=== PATIENT | male | born 1975 | race Caucasian/White ===

== ENCOUNTER 2022-01-22 14:13 | Inpatient (IN) ==
[2022-01-22] MEDS ORDERED: SODIUM CHLORIDE 0.9% 1,000 ML IV STA (15:55)
[2022-01-22 16:47] LABS: Arterial Base Excess iSTAT -1 MMOL/L (-2.5-2.5); Arterial Bicarbonate iSTAT 25.6 MMOL/L (20-26); Arterial O2 Saturation iSTAT 88 % (95-100); Arterial PCO2 iSTAT 49 MM HG (35-48); Arterial PO2 iSTAT 60 MM HG (80-95); Arterial Total CO2 iSTAT 27 MMO/L (23-27); Arterial pH iSTAT 7.324 (7.35-7.45); Bacteria,Urine Occasional /HPF (Few); RBC,Urine 5 /HPF (0-4)
[2022-01-22 16:47] LABS: Basophils # 0.1 10*3/uL (0.0-0.2); Basophils % 0.8 % (0.0-0.8); Eosinophils # 0.3 10*3/uL (0.0-0.87); Eosinophils % 3.2 % (0.00-10.9); Hematocrit 36.1 VOL% (42.0-52.0); Hemoglobin 11.6 GM/DL (14.0-18.0); Immature Granulocytes % 0.3 %; Immature Granulocytes Absolute 0.03 #; Lymphocytes # 1.8 10*3/uL (1.4-4.0); Lymphocytes % 20.5 % (21.2-54.2); Mean Corpuscular HGB Conc 32.1 GM/DL (32-36); Mean Corpuscular Volume 100.8 FL (87-102); Mean Platelet Volume 9.5 FL (9.6-12.0); Monocytes # 0.5 10*3/uL (0.11-0.8); Monocytes % 5.8 % (1.7-12.7); Neutrophils % 69.4 % (38.7-73.9); Platelet Count 196 T/CUMM (130-400); Red Blood Count 3.58 MC/CUMM (3.8-5.5); Red Cell Distribution Width 14.1 % (9.3-17.3); White Blood Count 8.8 T/CUMM (4-12)
[2022-01-22 16:48] LABS: Bilirubin,Urine Negative (Negative); Blood, Urine Small mg/dL (Negative); Glucose,Urine (UA) Negative (Negative); Ketones,Urine Negative (Negative); Nitrite,Urine Negative (Negative); Protein,Urine >=300 mg/dL (Negative); Urine Appearance Clear (Clear); Urine Color Yellow (Yellow); Urine Urobilinogen 0.2 eU/dL (<2.0); Urine pH 6.5 (4.5-8.0)
[2022-01-22 16:56] LABS: Barbiturates Screen,Urine Negative (Negative); Benzodiazepines Screen,Urine Negative (Negative); Cannabinoid Screen,Urine Negative (Negative); Opiate Screen,Urine Negative (Negative); Phencyclidine Screen,Urine Negative (Negative)
[2022-01-22 17:08] LABS: Alanine Aminotransferase 13 U/L (16-61); Albumin 3.4 G/DL (3.4-5.0); Alkaline Phosphatase 333 U/L (45-117); Aspartate Amino Transferase 11 U/L (0-37); Blood Urea Nitrogen 105 MG/DL (7-18); Calcium 8.9 MG/DL (8.5-10.1); Carbon Dioxide 24 MMOL/L (21-32); Chloride 99 MMOL/L (98-107); Glucose 62 MG/DL (74-106); Osmolality,Calculated 300.1 MOS/KG (273-304); Potassium 4.9 MMOL/L (3.5-5.1); Sodium 135 MMOL/L (136-145); Total Protein 7.2 G/DL (6.4-8.2)
[2022-01-22] MEDS ORDERED: ONDANSETRON 4 MG/2 ML VIAL IV PRN (17:59)
[2022-01-22] MEDS ORDERED: ACETAMINOPHEN 325 MG TABLET PO PRN (17:59)
[2022-01-22] MEDS ORDERED: ALBUTEROL 2.5 MG/3 ML NEB RESP TX PRN (17:59)
[2022-01-22] MEDS ORDERED: LACTULOSE 20 GM/30 ML UDCUP PO PRN (17:59)
[2022-01-22] MEDS ORDERED: ALUMINUM/MAGNES/SIMETH MAX STR 30 ML UDCUP PO PRN (17:59)
[2022-01-22] MEDS ORDERED: DOCUSATE SODIUM 100 MG CAPSULE PO PRN (17:59)
[2022-01-22] MEDS ORDERED: hydrALAZINE 20 MG/1 ML VIAL IV PRN (17:59)
[2022-01-22] MEDS ORDERED: GLUCAGON 1 MG VIAL IM PRN (17:59)
[2022-01-22] MEDS ORDERED: DEXTROSE 10% 250 ML BAG IV PRN (18:12)
[2022-01-22] MEDS: ENOXAPARIN 30 MG/0.3 ML SYRINGE SUBCUT SCH (18:58)
[2022-01-22] MEDS: LACTULOSE 20 GM/30 ML UDCUP PO SCH (20:44)
[2022-01-22] MEDS: metOLazone 5 MG TABLET PO SCH (20:44)
[2022-01-22] MEDS: INSULIN REGULAR 100 UNIT/ML SUBCUT SCH (20:53)
[2022-01-22] MEDS: traMADol 50 MG TABLET PO PRN (22:09)
[2022-01-23 05:02] LABS: ABG Base Excess -2.4 MMOL/L (-2.5-2.5); ABG HCO3 22.4 MMOL/L (20-26); ABG Oxygen Saturation 98.4 % (95-100); ABG PH 7.245 (7.35-7.45); ABG TCO2 23.9 MMOL/L (23-27)
[2022-01-23 06:23] LABS: Basophils % 0.6 % (0.0-0.8); Eosinophils # 0.2 10*3/uL (0.0-0.87); Eosinophils % 3.6 % (0.00-10.9); Hematocrit 35.8 VOL% (42.0-52.0); Immature Granulocytes % 0.5 %; Immature Granulocytes Absolute 0.03 #; Lymphocytes # 2.1 10*3/uL (1.4-4.0); Lymphocytes % 32.4 % (21.2-54.2); Mean Corpuscular HGB Conc 30.7 GM/DL (32-36); Mean Corpuscular Volume 104.7 FL (87-102); Mean Platelet Volume 9.7 FL (9.6-12.0); Monocytes # 0.5 10*3/uL (0.11-0.8); Neutrophils % 55.9 % (38.7-73.9); Platelet Count 198 T/CUMM (130-400); Red Blood Count 3.42 MC/CUMM (3.8-5.5); Red Cell Distribution Width 14.2 % (9.3-17.3); White Blood Count 6.4 T/CUMM (4-12)
[2022-01-23 06:38] LABS: Calcium 9.1 MG/DL (8.5-10.1); Osmolality,Calculated 305.7 MOS/KG (273-304); Potassium 4.7 MMOL/L (3.5-5.1)
[2022-01-23 06:41] LABS: Alanine Aminotransferase 14 U/L (16-61); Albumin 3.2 G/DL (3.4-5.0); Alkaline Phosphatase 323 U/L (45-117); Aspartate Amino Transferase 10 U/L (0-37); Bilirubin,Direct < 0.100 MG/DL (0.0-0.20); Bilirubin,Indirect 0.3 MG/DL (0.0-1.0); Bilirubin,Total < 0.39 MG/DL (0.20-1.00); Total Protein 6.8 G/DL (6.4-8.2)
[2022-01-23 06:51] LABS: Risk Ratio 2.63; VLDL Cholesterol 23.2 MG/DL
[2022-01-23] MEDS: INSULIN REGULAR 100 UNIT/ML SUBCUT SCH ×4 (07:36→20:52)
[2022-01-23] MEDS: metOLazone 5 MG TABLET PO SCH ×2 (08:11→20:55)
[2022-01-23] MEDS: FUROSEMIDE 40 MG TABLET PO SCH ×2 (08:11→16:38)
[2022-01-23] MEDS: LACTULOSE 20 GM/30 ML UDCUP PO SCH ×2 (08:11→20:52)
[2022-01-23] MEDS: ESCITALOPRAM 10 MG TABLET PO SCH (08:11)
[2022-01-23] MEDS: PANTOPRAZOLE 40 MG TABLET PO SCH (08:11)
[2022-01-23] MEDS: NICOTINE 21 MG/24 HR PATCH TRANSDERM SCH (08:12)
[2022-01-23] MEDS: NON-FORMULARY MEDICATION (Ferric Citrate [Auryxia] 210 mg iron Tablet) PO SCH ×3 (09:06→16:29)
[2022-01-23] MEDS: lisinopriL 20 MG TABLET PO SCH ×2 (09:06→16:38)
[2022-01-23 09:23] LABS: Free T4 (Free Thyroxine) 0.73 NG/DL (0.76-1.46)
[2022-01-23 12:41] LABS: Hepatitis B Core IgM Quant < 0.05 Index; Hepatitis B Surface Ag Quant < 0.10 Index; Hepatitis B Surface Ag Result Non-Reactive (NonReactive); Hepatitis C Virus Ab Quant 0.02 Index; Hepatitis C Virus Ab Result Non-Reactive (NonReactive)
[2022-01-23 13:07] LABS: Arterial Base Excess iSTAT -3 MMOL/L (-2.5-2.5); Arterial Bicarbonate iSTAT 23.8 MMOL/L (20-26); Arterial O2 Saturation iSTAT 91 % (95-100); Arterial PCO2 iSTAT 47 MM HG (35-48); Arterial PO2 iSTAT 68 MM HG (80-95); Arterial Total CO2 iSTAT 25 MMO/L (23-27); Arterial pH iSTAT 7.311 (7.35-7.45)
[2022-01-23] MEDS: ENOXAPARIN 30 MG/0.3 ML SYRINGE SUBCUT SCH (17:18)
[2022-01-23] MEDS: traMADol 50 MG TABLET PO PRN (18:24)
[2022-01-24 05:09] LABS: Basophils # 0.1 10*3/uL (0.0-0.2); Basophils % 0.6 % (0.0-0.8); Eosinophils # 0.3 10*3/uL (0.0-0.87); Eosinophils % 3.6 % (0.00-10.9); Hematocrit 34.3 VOL% (42.0-52.0); Hemoglobin 10.9 GM/DL (14.0-18.0); Immature Granulocytes % 0.5 %; Immature Granulocytes Absolute 0.04 #; Lymphocytes % 25.4 % (21.2-54.2); Mean Corpuscular HGB Conc 31.8 GM/DL (32-36); Mean Corpuscular Volume 102.7 FL (87-102); Mean Platelet Volume 10.2 FL (9.6-12.0); Monocytes # 0.6 10*3/uL (0.11-0.8); Monocytes % 7.3 % (1.7-12.7); Neutrophils % 62.6 % (38.7-73.9); Platelet Count 180 T/CUMM (130-400); Red Blood Count 3.34 MC/CUMM (3.8-5.5); Red Cell Distribution Width 14.3 % (9.3-17.3); White Blood Count 7.8 T/CUMM (4-12)
[2022-01-24 05:26] LABS: Calcium 9.5 MG/DL (8.5-10.1); Osmolality,Calculated 298.4 MOS/KG (273-304); Potassium 5.6 MMOL/L (3.5-5.1)
[2022-01-24] MEDS: INSULIN REGULAR 100 UNIT/ML SUBCUT SCH ×3 (09:24→16:42)
[2022-01-24] MEDS: NON-FORMULARY MEDICATION (Ferric Citrate [Auryxia] 210 mg iron Tablet) PO SCH ×2 (11:53→12:12)
[2022-01-24] MEDS: FUROSEMIDE 40 MG TABLET PO SCH ×2 (12:10→16:42)
[2022-01-24] MEDS: metOLazone 5 MG TABLET PO SCH (12:11)
[2022-01-24] MEDS: NICOTINE 21 MG/24 HR PATCH TRANSDERM SCH (12:11)
[2022-01-24] MEDS: LACTULOSE 20 GM/30 ML UDCUP PO SCH (12:11)
[2022-01-24] MEDS: lisinopriL 20 MG TABLET PO SCH (12:11)
[2022-01-24] MEDS: PANTOPRAZOLE 40 MG TABLET PO SCH (12:11)
[2022-01-24] MEDS: ESCITALOPRAM 10 MG TABLET PO SCH (12:11)
[2022-01-24] MEDS ORDERED: GABAPENTIN 300 MG CAPSULE PO SCH (15:00)
[2022-01-24 15:44] VITALS: BP 155/64
[2022-01-25] MEDS ORDERED: NEBIVOLOL 10 MG TABLET PO SCH (09:00)
== END 2022-01-24 16:38 | disposition home or self-care (01) | DRG 189 ==
LOC: N.ED 14:13 → N.EDINP 17:59 → N.5E 19:19
PROVIDERS: ADMIT Internal Medicine; ATTEND Internal Medicine

== ENCOUNTER 2022-02-12 11:25 | Observation (INO) ==
[2022-02-12] MEDS ORDERED: MORPHINE 2 MG/1 ML SYRINGE ONE (11:49)
[2022-02-12] MEDS ORDERED: NITROGLYCERIN 2% OINT 1 INCH/GM PACK TOP STA (11:49)
[2022-02-12] MEDS ORDERED: ASPIRIN 325 MG TABLET PO STA (11:49)
[2022-02-12] MEDS ORDERED: NITROGLYCERIN 2% OINT 1 INCH/GM PACK TOP ONE (11:50)
[2022-02-12] MEDS ORDERED: ASPIRIN 325 MG TABLET ONE (11:50)
[2022-02-12] MEDS ORDERED: ONDANSETRON 4 MG/2 ML VIAL ONE (11:50)
[2022-02-12] MEDS ORDERED: MORPHINE 2 MG/1 ML SYRINGE IV STA ×2 (11:52→12:25)
[2022-02-12 11:58] LABS: Basophils # 0.1 10*3/uL (0.0-0.2); Basophils % 0.6 % (0.0-0.8); Eosinophils # 0.4 10*3/uL (0.0-0.87); Eosinophils % 4.5 % (0.00-10.9); Hematocrit 37.3 VOL% (42.0-52.0); Immature Granulocytes % 0.6 %; Immature Granulocytes Absolute 0.05 #; Lymphocytes # 1.5 10*3/uL (1.4-4.0); Mean Corpuscular HGB Conc 32.2 GM/DL (32-36); Mean Corpuscular Volume 101.1 FL (87-102); Mean Platelet Volume 9.9 FL (9.6-12.0); Monocytes # 0.5 10*3/uL (0.11-0.8); Monocytes % 6.7 % (1.7-12.7); Neutrophils % 69.6 % (38.7-73.9); Platelet Count 142 T/CUMM (130-400); Red Blood Count 3.69 MC/CUMM (3.8-5.5); Red Cell Distribution Width 14.2 % (9.3-17.3); White Blood Count 8.1 T/CUMM (4-12)
[2022-02-12 12:16] LABS: Albumin 3.3 G/DL (3.4-5.0); Bilirubin,Total 0.4 MG/DL (0.20-1.00); Calcium 9.8 MG/DL (8.5-10.1); Osmolality,Calculated 289.1 MOS/KG (273-304); Potassium 4.1 MMOL/L (3.5-5.1); Total Protein 8.1 G/DL (6.4-8.2)
[2022-02-12] MEDS ORDERED: ONDANSETRON 4 MG/2 ML VIAL IV STA (12:19)
[2022-02-12] MEDS ORDERED: ONDANSETRON 4 MG/2 ML VIAL IV PRN (12:35)
[2022-02-12] MEDS ORDERED: DOCUSATE SODIUM 100 MG CAPSULE PO PRN (12:35)
[2022-02-12] MEDS ORDERED: SIMETHICONE CHEW 125 MG TABLET PO PRN (12:35)
[2022-02-12] MEDS ORDERED: GLUCAGON 1 MG VIAL IM PRN (12:35)
[2022-02-12] MEDS ORDERED: MORPHINE 2 MG/1 ML SYRINGE IV PRN (12:35)
[2022-02-12] MEDS ORDERED: ALBUTEROL 2.5 MG/3 ML NEB RESP TX PRN (12:35)
[2022-02-12] MEDS ORDERED: hydrALAZINE 20 MG/1 ML VIAL IV PRN (12:35)
[2022-02-12] MEDS ORDERED: ALUM/MAG/SIMETH/LIDO VISC 1:1 30 ML BOTTLE PO ONE (12:50)
[2022-02-12] MEDS ORDERED: ALUM/MAG/SIMETH/LIDO VISC 1:1 30 ML BOTTLE PO STA (13:07)
[2022-02-12] MEDS ORDERED: DEXTROSE 10% 250 ML BAG IV PRN ×2 (13:18→14:48)
[2022-02-12] MEDS: GABAPENTIN 300 MG CAPSULE PO SCH ×2 (15:49→22:08)
[2022-02-12] MEDS: INSULIN LISPRO 100 UNIT/ML SUBCUT SCH ×2 (16:55→22:23)
[2022-02-12] MEDS: HEPARIN 5,000 UNIT/1 ML VIAL SUBCUT SCH (22:07)
[2022-02-12] MEDS: metOLazone 5 MG TABLET PO SCH (22:08)
[2022-02-12] MEDS: FUROSEMIDE 40 MG TABLET PO SCH (22:08)
[2022-02-13 05:33] LABS: Basophils # 0.1 10*3/uL (0.0-0.2); Basophils % 0.6 % (0.0-0.8); Eosinophils # 0.3 10*3/uL (0.0-0.87); Eosinophils % 3.1 % (0.00-10.9); Hematocrit 34.8 VOL% (42.0-52.0); Hemoglobin 10.8 GM/DL (14.0-18.0); Immature Granulocytes % 0.7 %; Immature Granulocytes Absolute 0.07 #; Lymphocytes # 1.5 10*3/uL (1.4-4.0); Lymphocytes % 14.8 % (21.2-54.2); Mean Corpuscular Volume 103.9 FL (87-102); Mean Platelet Volume 10.3 FL (9.6-12.0); Monocytes # 0.8 10*3/uL (0.11-0.8); Monocytes % 8.2 % (1.7-12.7); Neutrophils % 72.6 % (38.7-73.9); Platelet Count 131 T/CUMM (130-400); Red Blood Count 3.35 MC/CUMM (3.8-5.5); Red Cell Distribution Width 14.4 % (9.3-17.3); White Blood Count 10.1 T/CUMM (4-12)
[2022-02-13 06:20] LABS: Albumin 3.2 G/DL (3.4-5.0); Bilirubin,Total 0.4 MG/DL (0.20-1.00); Calcium 9.7 MG/DL (8.5-10.1); Osmolality,Calculated 286.7 MOS/KG (273-304); Potassium 5.4 MMOL/L (3.5-5.1); Risk Ratio 2.22; Thyroid Stimulating Hormone 0.591 uIU/ml (0.358-3.74); Total Protein 7.6 G/DL (6.4-8.2)
[2022-02-13] MEDS ORDERED: SODIUM POLYSTYRENE SULFATE 15 GM/60 ML BOTTLE PO ONE (07:10)
[2022-02-13] MEDS ORDERED: ALUM/MAG/SIMETH/LIDO VISC 1:1 30 ML BOTTLE PO ONE (08:12)
[2022-02-13] MEDS ORDERED: NEBIVOLOL 10 MG TABLET PO SCH (09:00)
[2022-02-13] MEDS ORDERED: PANTOPRAZOLE 40 MG TABLET PO SCH (09:00)
[2022-02-13] MEDS ORDERED: lisinopriL 20 MG TABLET PO SCH (09:00)
[2022-02-13] MEDS ORDERED: tiZANidine 4 MG TABLET PO ONE (09:00)
[2022-02-13] MEDS: INSULIN LISPRO 100 UNIT/ML SUBCUT SCH ×2 (09:53→11:28)
[2022-02-13] MEDS: FUROSEMIDE 40 MG TABLET PO SCH (10:19)
[2022-02-13] MEDS: metOLazone 5 MG TABLET PO SCH (10:20)
[2022-02-13] MEDS: GABAPENTIN 300 MG CAPSULE PO SCH ×2 (10:20→14:58)
[2022-02-13] MEDS: HEPARIN 5,000 UNIT/1 ML VIAL SUBCUT SCH (10:21)
[2022-02-13 12:20] VITALS: BP 144/76
== END 2022-02-13 15:38 | disposition home or self-care (01) ==
LOC: EDBD → EDUNIT# → N.EDINP 11:25 → N.ED 11:25 → N.EDINP 14:59 → N.TELEN 15:14
PROVIDERS: ADMIT Internal Medicine; ATTEND Internal Medicine

== ENCOUNTER 2022-03-15 14:48 | Observation (INO) ==
[2022-03-15 16:39] LABS: Arterial Base Excess iSTAT -5 MMOL/L (-2.5-2.5); Arterial Bicarbonate iSTAT 21.7 MMOL/L (20-26); Arterial O2 Saturation iSTAT 94 % (95-100); Arterial PCO2 iSTAT 46 MM HG (35-48); Arterial PO2 iSTAT 80 MM HG (80-95); Arterial Total CO2 iSTAT 23 MMO/L (23-27); Arterial pH iSTAT 7.278 (7.35-7.45)
[2022-03-15 17:23] LABS: Basophils # 0.1 10*3/uL (0.0-0.2); Basophils % 0.6 % (0.0-0.8); Eosinophils # 0.1 10*3/uL (0.0-0.87); Hematocrit 37.7 VOL% (42.0-52.0); Hemoglobin 11.4 GM/DL (14.0-18.0); Immature Granulocytes % 0.3 %; Immature Granulocytes Absolute 0.03 #; Lymphocytes # 1.4 10*3/uL (1.4-4.0); Lymphocytes % 16.2 % (21.2-54.2); Mean Corpuscular HGB Conc 30.2 GM/DL (32-36); Mean Corpuscular Volume 107.7 FL (87-102); Mean Platelet Volume 11.4 FL (9.6-12.0); Monocytes # 0.6 10*3/uL (0.11-0.8); Monocytes % 7.3 % (1.7-12.7); Neutrophils % 74.6 % (38.7-73.9); Platelet Count 159 T/CUMM (130-400); Red Cell Distribution Width 18.6 % (9.3-17.3); White Blood Count 8.6 T/CUMM (4-12)
[2022-03-15] MEDS ORDERED: VANCOMYCIN INJ 1,500 MG in SODIUM CHLORIDE 0.9% 500 ML IV STA (17:27)
[2022-03-15 17:46] LABS: Albumin 2.9 G/DL (3.4-5.0); Bilirubin,Total 0.4 MG/DL (0.20-1.00); Calcium 8.5 MG/DL (8.5-10.1); Osmolality,Calculated 294.1 MOS/KG (273-304); Total Protein 7.1 G/DL (6.4-8.2)
[2022-03-15] MEDS ORDERED: LACTULOSE 20 GM/30 ML UDCUP PO STA (19:01)
[2022-03-15] MEDS ORDERED: MORPHINE 2 MG/1 ML SYRINGE IV PRN (19:23)
[2022-03-15] MEDS ORDERED: NICOTINE 21 MG/24 HR PATCH TRANSDERM PRN (19:23)
[2022-03-15] MEDS ORDERED: GLUCAGON 1 MG VIAL IM PRN (19:23)
[2022-03-15] MEDS ORDERED: ONDANSETRON 4 MG/2 ML VIAL IV PRN (19:23)
[2022-03-15] MEDS ORDERED: hydrALAZINE 20 MG/1 ML VIAL IV PRN (19:32)
[2022-03-15 20:26] LABS: Barbiturates Screen,Urine Negative (Negative); Benzodiazepines Screen,Urine Negative (Negative); Cannabinoid Screen,Urine Negative (Negative); Opiate Screen,Urine Positive (Negative); Phencyclidine Screen,Urine Negative (Negative)
[2022-03-15] MEDS ORDERED: VANCOMYCIN INJ 1,000 MG in SODIUM CHLORIDE 0.9% 250 ML IV PRN (21:00)
[2022-03-15] MEDS ORDERED: DEXTROSE 10% 250 ML BAG IV PRN (21:12)
[2022-03-15] MEDS ORDERED: VANCOMYCIN INJ 1,000 MG in SODIUM CHLORIDE 0.9% 250 ML IV ONE (21:30)
[2022-03-15 21:57] LABS: Thyroid Stimulating Hormone 1.41 uIU/ml (0.358-3.74)
[2022-03-15] MEDS: HEPARIN 5,000 UNIT/1 ML VIAL SUBCUT SCH (23:10)
[2022-03-15] MEDS: LACTULOSE 20 GM/30 ML UDCUP PO SCH (23:10)
[2022-03-15] MEDS: INSULIN REGULAR 100 UNIT/ML SUBCUT SCH (23:15)
[2022-03-16 02:53] LABS: Basophils # 0.1 10*3/uL (0.0-0.2); Basophils % 0.8 % (0.0-0.8); Eosinophils # 0.2 10*3/uL (0.0-0.87); Eosinophils % 1.9 % (0.00-10.9); Hemoglobin 12.3 GM/DL (14.0-18.0); Immature Granulocytes % 0.4 %; Immature Granulocytes Absolute 0.03 #; Lymphocytes # 1.8 10*3/uL (1.4-4.0); Lymphocytes % 22.4 % (21.2-54.2); Mean Corpuscular HGB Conc 30.8 GM/DL (32-36); Mean Corpuscular Volume 108.4 FL (87-102); Monocytes # 0.5 10*3/uL (0.11-0.8); Monocytes % 6.8 % (1.7-12.7); Neutrophils % 67.7 % (38.7-73.9); Platelet Count 149 T/CUMM (130-400); Red Blood Count 3.69 MC/CUMM (3.8-5.5); Red Cell Distribution Width 18.7 % (9.3-17.3); White Blood Count 7.9 T/CUMM (4-12)
[2022-03-16 03:34] LABS: Bilirubin,Total 0.4 MG/DL (0.20-1.00); Osmolality,Calculated 297.7 MOS/KG (273-304); Potassium 4.6 MMOL/L (3.5-5.1); Risk Ratio 1.95; Total Protein 7.9 G/DL (6.4-8.2); VLDL Cholesterol 15.2 MG/DL
[2022-03-16] MEDS: metOLazone 5 MG TABLET PO SCH ×3 (04:07→21:05)
[2022-03-16] MEDS ORDERED: PIPERACILLIN/TAZOBACTAM 3.375 MG in SODIUM CHLORIDE 0.9% 100 ML IV SCH (06:00)
[2022-03-16] MEDS: PIPERACILLIN/TAZOBACTAM 3,375 MG in SODIUM CHLORIDE 0.9% 100 ML IV SCH ×2 (06:11→18:17)
[2022-03-16] MEDS: INSULIN REGULAR 100 UNIT/ML SUBCUT SCH ×4 (07:47→20:19)
[2022-03-16] MEDS: HEPARIN 5,000 UNIT/1 ML VIAL SUBCUT SCH ×2 (08:16→21:06)
[2022-03-16] MEDS: LACTULOSE 20 GM/30 ML UDCUP PO SCH ×3 (08:18→21:31)
[2022-03-16] MEDS: lisinopriL 20 MG TABLET PO SCH (08:18)
[2022-03-16] MEDS: PANTOPRAZOLE 40 MG TABLET PO SCH (08:19)
[2022-03-16] MEDS: NEBIVOLOL 10 MG TABLET PO SCH (08:19)
[2022-03-16] MEDS ORDERED: ACETAMINOPHEN 500 MG TABLET PO PRN (11:13)
[2022-03-16] MEDS ORDERED: NON-FORMULARY MEDICATION (Esomeprazole Magnesium 20 mg Tablet,Delayed Release (Dr/Ec)) PO SCH (11:15)
[2022-03-16] MEDS: IBUPROFEN 800 MG TABLET PO SCH ×2 (12:23→21:05)
[2022-03-16] MEDS: DULoxetine 30 MG CAPSULE PO SCH ×2 (12:23→21:05)
[2022-03-16 14:20] LABS: Hepatitis B Core IgM Quant 0.15 Index; Hepatitis B Surface Ag Quant < 0.10 Index; Hepatitis B Surface Ag Result Non-Reactive (NonReactive); Hepatitis C Virus Ab Quant 0.04 Index; Hepatitis C Virus Ab Result Non-Reactive (NonReactive)
[2022-03-16] MEDS ORDERED: VANCOMYCIN INJ 1,000 MG in SODIUM CHLORIDE 0.9% 250 ML IV ONE (17:00)
[2022-03-16] MEDS: SUCROFERRIC OXYHYDROXIDE 500 MG PO SCH (17:15)
[2022-03-16] MEDS: FERRIC CITRATE 210 MG PO SCH (17:15)
[2022-03-16] MEDS: IRON PO SCH (17:15)
[2022-03-16] MEDS: busPIRone 5 MG TABLET PO SCH ×2 (17:23→21:05)
[2022-03-16] MEDS: GABAPENTIN 300 MG CAPSULE PO SCH ×2 (17:23→21:05)
[2022-03-16] MEDS: FUROSEMIDE 80 MG TABLET PO SCH (17:23)
[2022-03-16] MEDS ORDERED: SIMVASTATIN 10 MG TABLET PO SCH (21:00)
[2022-03-16] MEDS ORDERED: ACETAMINOPHEN 500 MG TABLET PO SCH (21:00)
[2022-03-17 05:52] LABS: Albumin 2.5 G/DL (3.4-5.0); Bilirubin,Total 0.5 MG/DL (0.20-1.00); Osmolality,Calculated 299.4 MOS/KG (273-304); Potassium 4.3 MMOL/L (3.5-5.1)
[2022-03-17 05:58] LABS: Basophils # 0.1 10*3/uL (0.0-0.2); Eosinophils # 0.3 10*3/uL (0.0-0.87); Hematocrit 34.3 VOL% (42.0-52.0); Immature Granulocytes % 0.5 %; Immature Granulocytes Absolute 0.03 #; Lymphocytes # 1.7 10*3/uL (1.4-4.0); Lymphocytes % 27.2 % (21.2-54.2); Mean Corpuscular Volume 107.5 FL (87-102); Mean Platelet Volume 11.1 FL (9.6-12.0); Monocytes # 0.6 10*3/uL (0.11-0.8); Monocytes % 9.2 % (1.7-12.7); Neutrophils % 58.1 % (38.7-73.9); Platelet Count 156 T/CUMM (130-400); Red Blood Count 3.19 MC/CUMM (3.8-5.5); Red Cell Distribution Width 18.7 % (9.3-17.3); White Blood Count 6.2 T/CUMM (4-12)
[2022-03-17 06:07] LABS: Hemoglobin 10.3 GM/DL (14.0-18.0)
[2022-03-17] MEDS: PIPERACILLIN/TAZOBACTAM 3,375 MG in SODIUM CHLORIDE 0.9% 100 ML IV SCH (06:31)
[2022-03-17] MEDS: INSULIN REGULAR 100 UNIT/ML SUBCUT SCH (07:58)
[2022-03-17] MEDS: GABAPENTIN 300 MG CAPSULE PO SCH (08:38)
[2022-03-17] MEDS: DULoxetine 30 MG CAPSULE PO SCH (08:38)
[2022-03-17] MEDS: NEBIVOLOL 10 MG TABLET PO SCH (08:38)
[2022-03-17] MEDS: busPIRone 5 MG TABLET PO SCH (08:39)
[2022-03-17] MEDS: lisinopriL 20 MG TABLET PO SCH (08:39)
[2022-03-17] MEDS: IBUPROFEN 800 MG TABLET PO SCH (08:39)
[2022-03-17] MEDS: metOLazone 5 MG TABLET PO SCH (08:39)
[2022-03-17] MEDS: FUROSEMIDE 80 MG TABLET PO SCH (08:39)
[2022-03-17] MEDS: PANTOPRAZOLE 40 MG TABLET PO SCH (08:40)
[2022-03-17 08:41] VITALS: BP 113/66
[2022-03-17] MEDS ORDERED: ASPIRIN EC 81 MG TABLET PO SCH (09:00)
[2022-03-17] MEDS: HEPARIN 5,000 UNIT/1 ML VIAL SUBCUT SCH (09:18)
[2022-03-17] MEDS: LACTULOSE 20 GM/30 ML UDCUP PO SCH (09:18)
[2022-03-17] MEDS: FERRIC CITRATE 210 MG PO SCH (09:18)
[2022-03-17] MEDS: IRON PO SCH (09:18)
[2022-03-17] MEDS: SUCROFERRIC OXYHYDROXIDE 500 MG PO SCH (09:18)
== END 2022-03-17 10:31 | disposition home or self-care (01) ==
LOC: N.3E 14:48 → N.ED 14:48 → N.3E 03-16 01:52
PROVIDERS: ADMIT Family Medicine; ATTEND Family Medicine

== ENCOUNTER 2022-04-03 21:48 | Inpatient (IN) ==
[2022-04-03] MEDS ORDERED: MEROPENEM 500 MG in SODIUM CHLORIDE 0.9% 100 ML IV ONE (22:24)
[2022-04-03 22:27] LABS: Basophils # 0.1 10*3/uL (0.0-0.2); Basophils % 0.7 % (0.0-0.8); Eosinophils # 0.1 10*3/uL (0.0-0.87); Eosinophils % 1.2 % (0.00-10.9); Hematocrit 39.9 VOL% (42.0-52.0); Immature Granulocytes % 0.6 %; Immature Granulocytes Absolute 0.05 #; Lymphocytes # 1.2 10*3/uL (1.4-4.0); Mean Corpuscular HGB Conc 30.1 GM/DL (32-36); Mean Platelet Volume 11.3 FL (9.6-12.0); Monocytes # 0.6 10*3/uL (0.11-0.8); Monocytes % 6.9 % (1.7-12.7); NRBC # 0.02 10*3/uL; Neutrophils % 77.6 % (38.7-73.9); Platelet Count 123 T/CUMM (130-400); Red Blood Count 3.66 MC/CUMM (3.8-5.5); Red Cell Distribution Width 19.5 % (9.3-17.3)
[2022-04-03 22:36] LABS: INR 1.2; PT Patient Result 12.9 SECS (10.1-12.1)
[2022-04-03 22:42] LABS: Albumin 2.9 G/DL (3.4-5.0); Bilirubin,Total 0.5 MG/DL (0.20-1.00); Calcium 9.8 MG/DL (8.5-10.1); Osmolality,Calculated 299.1 MOS/KG (273-304); Potassium 4.8 MMOL/L (3.5-5.1); Total Protein 7.3 G/DL (6.4-8.2)
[2022-04-03 22:47] LABS: CKMB % 5.71 %
[2022-04-03 22:49] LABS: Arterial Base Excess iSTAT -4 MMOL/L (-2.5-2.5); Arterial Bicarbonate iSTAT 23.8 MMOL/L (20-26); Arterial O2 Saturation iSTAT 85 % (95-100); Arterial PCO2 iSTAT 51 MM HG (35-48); Arterial PO2 iSTAT 58 MM HG (80-95); Arterial Total CO2 iSTAT 25 MMO/L (23-27); Arterial pH iSTAT 7.279 (7.35-7.45)
[2022-04-03 23:24] LABS: Bilirubin,Urine Small mg/dL (Negative); Blood, Urine Trace mg/dL (Negative); Glucose,Urine (UA) Negative (Negative); Ketones,Urine Trace mg/dL (Negative); Nitrite,Urine Negative (Negative); Protein,Urine 100 mg/dL (Negative); Urine Appearance Clear (Clear); Urine Color Yellow (Yellow); Urine Specific Gravity 1.025 (1.001-1.035); Urine Urobilinogen 0.2 eU/dL (<2.0)
[2022-04-03 23:25] LABS: Bacteria,Urine Occasional /HPF (Few); Mucus,Urine Occasional /LPF (Occasional); RBC,Urine 2 /HPF (0-4)
[2022-04-04 01:17] LABS: Arterial Base Excess iSTAT -3 MMOL/L (-2.5-2.5); Arterial O2 Saturation iSTAT 100 % (95-100); Arterial PCO2 iSTAT 48 MM HG (35-48); Arterial PO2 iSTAT 190 MM HG (80-95); Arterial Total CO2 iSTAT 25 MMO/L (23-27); Arterial pH iSTAT 7.304 (7.35-7.45)
[2022-04-04] MEDS ORDERED: ALBUTEROL 2.5 MG/3 ML NEB RESP TX PRN (01:52)
[2022-04-04] MEDS ORDERED: ONDANSETRON 4 MG/2 ML VIAL IV PRN (01:52)
[2022-04-04] MEDS ORDERED: hydrALAZINE 20 MG/1 ML VIAL IV PRN (01:52)
[2022-04-04] MEDS: CEFTAROLINE 200 MG in SODIUM CHLORIDE 0.9% 100 ML IV SCH ×2 (02:30→15:45)
[2022-04-04] MEDS ORDERED: LACTULOSE 320 GM/480 ML BOTTLE RECTAL ONE (03:00)
[2022-04-04] MEDS ORDERED: GLUCAGON 1 MG VIAL IM PRN (03:35)
[2022-04-04] MEDS ORDERED: DEXTROSE 10% 250 ML BAG IV PRN (03:37)
[2022-04-04] MEDS: CLINDAMYCIN INJ 600 MG/50 ML PREMIX IV SCH ×4 (03:54→20:37)
[2022-04-04] MEDS ORDERED: NICOTINE 21 MG/24 HR PATCH TRANSDERM PRN (04:03)
[2022-04-04 04:11] LABS: Arterial Base Excess iSTAT -3 MMOL/L (-2.5-2.5); Arterial O2 Saturation iSTAT 100 % (95-100); Arterial PCO2 iSTAT 49 MM HG (35-48); Arterial PO2 iSTAT 190 MM HG (80-95); Arterial Total CO2 iSTAT 25 MMO/L (23-27); Arterial pH iSTAT 7.302 (7.35-7.45)
[2022-04-04 05:03] LABS: Basophils # 0.1 10*3/uL (0.0-0.2); Basophils % 0.6 % (0.0-0.8); Eosinophils # 0.1 10*3/uL (0.0-0.87); Hematocrit 37.7 VOL% (42.0-52.0); Hemoglobin 11.3 GM/DL (14.0-18.0); Immature Granulocytes % 0.6 %; Immature Granulocytes Absolute 0.05 #; Lymphocytes # 1.2 10*3/uL (1.4-4.0); Lymphocytes % 14.8 % (21.2-54.2); Mean Corpuscular Volume 109.6 FL (87-102); Mean Platelet Volume 11.6 FL (9.6-12.0); Monocytes # 0.5 10*3/uL (0.11-0.8); Monocytes % 6.8 % (1.7-12.7); Neutrophils % 76.2 % (38.7-73.9); Platelet Count 116 T/CUMM (130-400); Red Blood Count 3.44 MC/CUMM (3.8-5.5); Red Cell Distribution Width 19.5 % (9.3-17.3)
[2022-04-04 05:22] LABS: Albumin 2.8 G/DL (3.4-5.0); Bilirubin,Total 0.6 MG/DL (0.20-1.00); Calcium 9.6 MG/DL (8.5-10.1); Osmolality,Calculated 296.2 MOS/KG (273-304); Potassium 4.7 MMOL/L (3.5-5.1)
[2022-04-04 05:25] LABS: Folate 5.66 NG/ML (5.38-24.0)
[2022-04-04] MEDS: INSULIN REGULAR 100 UNIT/ML SUBCUT SCH ×4 (05:38→23:37)
[2022-04-04] MEDS: HEPARIN 5,000 UNIT/1 ML VIAL SUBCUT SCH ×2 (09:56→20:38)
[2022-04-04] MEDS: NOREPINEPHRINE 8 MG in SODIUM CHLORIDE 0.9% 242 ML IV PRN (12:30)
[2022-04-04] MEDS ORDERED: SODIUM CHLORIDE 0.9% 1,000 ML IV ONE (12:30)
[2022-04-04] MEDS ORDERED: NOREPINEPHRINE 4 MG/4 ML VIAL IV ONE (12:43)
[2022-04-04 16:20] LABS: ABG Base Excess -2.1 MMOL/L (-2.5-2.5); ABG HCO3 22.7 MMOL/L (20-26); ABG Oxygen Saturation 99.3 % (95-100); ABG PCO2 48.2 MM HG (35-48); ABG PH 7.315 (7.35-7.45); ABG TCO2 21.7 MMOL/L (23-27)
[2022-04-04] MEDS: LACTULOSE 20 GM/30 ML UDCUP PO SCH (20:37)
[2022-04-05] MEDS: CEFTAROLINE 200 MG in SODIUM CHLORIDE 0.9% 100 ML IV SCH ×2 (03:03→15:36)
[2022-04-05 03:20] LABS: ABG Base Excess -3.1 MMOL/L (-2.5-2.5); ABG HCO3 21.8 MMOL/L (20-26); ABG Oxygen Saturation 99.2 % (95-100); ABG PCO2 47.6 MM HG (35-48); ABG PH 7.302 (7.35-7.45); ABG TCO2 21.3 MMOL/L (23-27)
[2022-04-05 03:21] LABS: Basophils # 0.1 10*3/uL (0.0-0.2); Basophils % 0.8 % (0.0-0.8); Eosinophils # 0.1 10*3/uL (0.0-0.87); Eosinophils % 1.2 % (0.00-10.9); Hematocrit 38.4 VOL% (42.0-52.0); Hemoglobin 11.5 GM/DL (14.0-18.0); Immature Granulocytes % 0.4 %; Immature Granulocytes Absolute 0.04 #; Lymphocytes # 1.3 10*3/uL (1.4-4.0); Lymphocytes % 14.9 % (21.2-54.2); Mean Corpuscular HGB Conc 29.9 GM/DL (32-36); Mean Corpuscular Volume 109.1 FL (87-102); Mean Platelet Volume 11.2 FL (9.6-12.0); Monocytes # 0.7 10*3/uL (0.11-0.8); Monocytes % 7.9 % (1.7-12.7); NRBC # 0.02 10*3/uL; Neutrophils % 74.8 % (38.7-73.9); Platelet Count 142 T/CUMM (130-400); Red Blood Count 3.52 MC/CUMM (3.8-5.5); Red Cell Distribution Width 19.2 % (9.3-17.3)
[2022-04-05 03:38] LABS: Albumin 2.7 G/DL (3.4-5.0); Bilirubin,Total 0.6 MG/DL (0.20-1.00); Calcium 9.6 MG/DL (8.5-10.1)
[2022-04-05] MEDS: LACTULOSE 20 GM/30 ML UDCUP PO SCH ×3 (04:03→20:01)
[2022-04-05] MEDS: CLINDAMYCIN INJ 600 MG/50 ML PREMIX IV SCH ×4 (04:03→20:40)
[2022-04-05] MEDS: INSULIN REGULAR 100 UNIT/ML SUBCUT SCH ×4 (05:18→23:41)
[2022-04-05] MEDS: NOREPINEPHRINE 8 MG in SODIUM CHLORIDE 0.9% 242 ML IV PRN (06:09)
[2022-04-05] MEDS ORDERED: ERGOCALCIFEROL 50,000 UNIT CAPSULE PO SCH (09:00)
[2022-04-05] MEDS: HEPARIN 5,000 UNIT/1 ML VIAL SUBCUT SCH ×2 (09:22→20:01)
[2022-04-06] MEDS: CEFTAROLINE 200 MG in SODIUM CHLORIDE 0.9% 100 ML IV SCH (02:33)
[2022-04-06] MEDS: CLINDAMYCIN INJ 600 MG/50 ML PREMIX IV SCH (02:33)
[2022-04-06 04:04] LABS: ABG Base Excess -2.5 MMOL/L (-2.5-2.5); ABG HCO3 22.3 MMOL/L (20-26); ABG Oxygen Saturation 96.9 % (95-100); ABG PCO2 38.8 MM HG (35-48); ABG PO2 88.2 MM HG (80-95); ABG TCO2 20.4 MMOL/L (23-27)
[2022-04-06 04:08] LABS: Basophils # 0.1 10*3/uL (0.0-0.2); Basophils % 1.1 % (0.0-0.8); Eosinophils # 0.1 10*3/uL (0.0-0.87); Eosinophils % 1.5 % (0.00-10.9); Hematocrit 36.5 VOL% (42.0-52.0); Hemoglobin 11.2 GM/DL (14.0-18.0); Immature Granulocytes % 0.4 %; Immature Granulocytes Absolute 0.02 #; Lymphocytes # 1.4 10*3/uL (1.4-4.0); Mean Corpuscular HGB Conc 30.7 GM/DL (32-36); Mean Corpuscular Volume 108.3 FL (87-102); Mean Platelet Volume 10.9 FL (9.6-12.0); Monocytes # 0.5 10*3/uL (0.11-0.8); Monocytes % 9.2 % (1.7-12.7); NRBC # 0.02 10*3/uL; Neutrophils % 60.8 % (38.7-73.9); Platelet Count 121 T/CUMM (130-400); Red Blood Count 3.37 MC/CUMM (3.8-5.5); Red Cell Distribution Width 18.9 % (9.3-17.3); White Blood Count 5.3 T/CUMM (4-12)
[2022-04-06 04:21] LABS: Albumin 2.6 G/DL (3.4-5.0); Bilirubin,Total 0.6 MG/DL (0.20-1.00); Calcium 9.1 MG/DL (8.5-10.1); Osmolality,Calculated 293.8 MOS/KG (273-304); Potassium 4.7 MMOL/L (3.5-5.1); Total Protein 6.8 G/DL (6.4-8.2)
[2022-04-06] MEDS: INSULIN REGULAR 100 UNIT/ML SUBCUT SCH ×4 (05:18→20:54)
[2022-04-06] MEDS: HEPARIN 5,000 UNIT/1 ML VIAL SUBCUT SCH ×2 (09:43→20:55)
[2022-04-06] MEDS: FLUCONAZOLE 200 MG TABLET PO SCH (13:23)
[2022-04-06] MEDS: cephALEXin 500 MG CAPSULE PO SCH (20:54)
[2022-04-06] MEDS: TRIAMCINOLONE 0.1% CREAM 15 GM TUBE TOP SCH (20:55)
[2022-04-07] MEDS: INSULIN REGULAR 100 UNIT/ML SUBCUT SCH ×4 (08:25→22:13)
[2022-04-07] MEDS: cephALEXin 500 MG CAPSULE PO SCH ×2 (12:24→22:13)
[2022-04-07] MEDS: FLUCONAZOLE 200 MG TABLET PO SCH (12:25)
[2022-04-07] MEDS: TRIAMCINOLONE 0.1% CREAM 15 GM TUBE TOP SCH ×2 (12:25→22:15)
[2022-04-07] MEDS: HEPARIN 5,000 UNIT/1 ML VIAL SUBCUT SCH ×2 (12:25→22:13)
[2022-04-08 05:31] LABS: Basophils # 0.1 10*3/uL (0.0-0.2); Basophils % 1.2 % (0.0-0.8); Eosinophils # 0.2 10*3/uL (0.0-0.87); Eosinophils % 3.4 % (0.00-10.9); Hematocrit 35.2 VOL% (42.0-52.0); Hemoglobin 10.8 GM/DL (14.0-18.0); Immature Granulocytes % 0.6 %; Immature Granulocytes Absolute 0.03 #; Lymphocytes # 1.5 10*3/uL (1.4-4.0); Lymphocytes % 29.1 % (21.2-54.2); Mean Corpuscular HGB Conc 30.7 GM/DL (32-36); Mean Corpuscular Volume 106.3 FL (87-102); Mean Platelet Volume 11.2 FL (9.6-12.0); Monocytes # 0.6 10*3/uL (0.11-0.8); Monocytes % 11.1 % (1.7-12.7); Neutrophils % 54.6 % (38.7-73.9); Platelet Count 128 T/CUMM (130-400); Red Blood Count 3.31 MC/CUMM (3.8-5.5); Red Cell Distribution Width 18.6 % (9.3-17.3); White Blood Count 5.1 T/CUMM (4-12)
[2022-04-08 05:53] LABS: Calcium 9.5 MG/DL (8.5-10.1); Osmolality,Calculated 289.8 MOS/KG (273-304); Potassium 4.1 MMOL/L (3.5-5.1)
[2022-04-08] MEDS: INSULIN REGULAR 100 UNIT/ML SUBCUT SCH ×4 (08:40→22:02)
[2022-04-08] MEDS: FLUCONAZOLE 200 MG TABLET PO SCH (09:07)
[2022-04-08] MEDS: cephALEXin 500 MG CAPSULE PO SCH ×2 (09:07→21:59)
[2022-04-08] MEDS: HEPARIN 5,000 UNIT/1 ML VIAL SUBCUT SCH ×2 (09:07→21:59)
[2022-04-08] MEDS: TRIAMCINOLONE 0.1% CREAM 15 GM TUBE TOP SCH ×2 (12:14→22:01)
[2022-04-09] MEDS: INSULIN REGULAR 100 UNIT/ML SUBCUT SCH (08:29)
[2022-04-09] MEDS: FLUCONAZOLE 200 MG TABLET PO SCH (08:35)
[2022-04-09] MEDS: TRIAMCINOLONE 0.1% CREAM 15 GM TUBE TOP SCH (08:36)
[2022-04-09] MEDS: HEPARIN 5,000 UNIT/1 ML VIAL SUBCUT SCH (08:36)
[2022-04-09] MEDS: cephALEXin 500 MG CAPSULE PO SCH (08:36)
[2022-04-09 09:00] VITALS: BP 128/67
== END 2022-04-09 12:39 | disposition home or self-care (01) | DRG 189 ==
LOC: N.ED 21:48 → SUATTDRO 04-04 01:22 → N.CC 04-04 01:22 → N.3E 04-06 15:21
PROVIDERS: ADMIT Family Medicine; ATTEND Internal Medicine Geriatric Medicine

== ENCOUNTER 2022-05-01 12:47 | Inpatient (IN) ==
[2022-05-01] MEDS ORDERED: ALBUTEROL/IPRATROPIUM 3 ML NEB RESP TX STA (13:08)
[2022-05-01 13:36] LABS: Basophils % 0.1 % (0.0-0.8); Hematocrit 36.5 VOL% (42.0-52.0); Hemoglobin 11.2 GM/DL (14.0-18.0); Immature Granulocytes % 5.5 %; Immature Granulocytes Absolute 0.58 #; Lymphocytes # 0.5 10*3/uL (1.4-4.0); Lymphocytes % 4.3 % (21.2-54.2); Mean Corpuscular HGB Conc 30.7 GM/DL (32-36); Mean Corpuscular Volume 103.4 FL (87-102); Mean Platelet Volume 12.9 FL (9.6-12.0); Monocytes # 0.3 10*3/uL (0.11-0.8); Monocytes % 2.8 % (1.7-12.7); NRBC # 0.11 10*3/uL; Neutrophils % 87.3 % (38.7-73.9); Platelet Count 116 T/CUMM (130-400); Red Blood Count 3.53 MC/CUMM (3.8-5.5); White Blood Count 10.5 T/CUMM (4-12)
[2022-05-01 13:55] LABS: Albumin 2.3 G/DL (3.4-5.0); Calcium 8.5 MG/DL (8.5-10.1); Osmolality,Calculated 281.7 MOS/KG (273-304); Potassium 4.5 MMOL/L (3.5-5.1)
[2022-05-01 14:08] LABS: Arterial Base Excess iSTAT -6 MMOL/L (-2.5-2.5); Arterial Bicarbonate iSTAT 20.5 MMOL/L (20-26); Arterial O2 Saturation iSTAT 91 % (95-100); Arterial PCO2 iSTAT 45 MM HG (35-48); Arterial PO2 iSTAT 70 MM HG (80-95); Arterial Total CO2 iSTAT 22 MMO/L (23-27)
[2022-05-01 14:25] LABS: Band Neutrophils 29 % (0-10); Lymphocytes 3 % (20-55); Nucleated Red Blood Cells 1 /100 WBC (0-5); Total Cells Counted 100
[2022-05-01 14:31] LABS: Burr Cells Slight
[2022-05-01 14:33] LABS: Macrocytosis Slight; Platelet Estimate Normal
[2022-05-01] MEDS ORDERED: ACETAMINOPHEN 325 MG TABLET PO PRN (15:03)
[2022-05-01] MEDS ORDERED: ALBUTEROL 2.5 MG/3 ML NEB RESP TX PRN (15:03)
[2022-05-01] MEDS ORDERED: GLUCAGON 1 MG VIAL IM PRN (15:03)
[2022-05-01] MEDS ORDERED: DOCUSATE SODIUM 100 MG CAPSULE PO PRN (15:03)
[2022-05-01] MEDS ORDERED: SIMETHICONE CHEW 125 MG TABLET PO PRN (15:03)
[2022-05-01] MEDS ORDERED: ONDANSETRON 4 MG/2 ML VIAL IV PRN (15:03)
[2022-05-01] MEDS ORDERED: NICOTINE 21 MG/24 HR PATCH TRANSDERM PRN (15:17)
[2022-05-01] MEDS ORDERED: NON-FORMULARY MEDICATION (Ferric Citrate [Auryxia] 210 mg iron tablet) PO SCH (15:30)
[2022-05-01] MEDS ORDERED: MIDODRINE 5 MG TABLET PO SCH (16:00)
[2022-05-01] MEDS: methylPREDNISolone SOD SUC 40 MG/1 ML VIAL IV SCH (17:06)
[2022-05-01] MEDS: HEPARIN 5,000 UNIT/1 ML VIAL SUBCUT SCH (17:07)
[2022-05-01] MEDS: cefTRIAXone 1,000 MG in SODIUM CHLORIDE 0.9% 100 ML IV SCH (17:07)
[2022-05-01] MEDS: INSULIN LISPRO 100 UNIT/ML SUBCUT SCH (17:07)
[2022-05-01 18:24] LABS: Hepatitis B Core IgM Quant 0.15 Index; Hepatitis B Surface Ag Quant < 0.10 Index; Hepatitis B Surface Ag Result Non-Reactive (NonReactive); Hepatitis C Virus Ab Quant 0.13 Index; Hepatitis C Virus Ab Result Non-Reactive (NonReactive)
[2022-05-01] MEDS ORDERED: MIDAZOLAM 2 MG/2 ML VIAL ONE (18:44)
[2022-05-01] MEDS ORDERED: MIDAZOLAM 2 MG/2 ML VIAL IV ONE (18:47)
[2022-05-01] MEDS: MIDAZOLAM 100 MG in SODIUM CHLORIDE 0.9% 80 ML IV PRN (19:00)
[2022-05-01] MEDS ORDERED: NOREPINEPHRINE 4 MG/4 ML VIAL IV ONE (19:13)
[2022-05-01] MEDS: NOREPINEPHRINE 8 MG in SODIUM CHLORIDE 0.9% 242 ML IV PRN (19:20)
[2022-05-01 19:24] LABS: Calcium 9.5 MG/DL (8.5-10.1); Osmolality,Calculated 277.7 MOS/KG (273-304); Potassium 5.5 MMOL/L (3.5-5.1)
[2022-05-01 19:42] VITALS: BP 165/135
[2022-05-01] MEDS: ALBUTEROL/IPRATROPIUM 3 ML NEB RESP TX SCH (20:16)
[2022-05-01 20:51] LABS: ABG Base Excess -9.6 MMOL/L (-2.5-2.5); ABG HCO3 16.8 MMOL/L (20-26); ABG Oxygen Saturation 93.7 % (95-100); ABG PO2 97.2 MM HG (80-95); ABG TCO2 19.4 MMOL/L (23-27)
[2022-05-01 20:53] LABS: ABG PH 7.131 (7.35-7.45)
[2022-05-01] MEDS: AZITHROMYCIN INJ 500 MG in SODIUM CHLORIDE 0.9% 250 ML IV SCH (23:00)
[2022-05-01] MEDS: NON-FORMULARY MEDICATION (Ferric Citrate [Auryxia] 210 mg iron Tablet) PO SCH (23:01)
[2022-05-01 23:46] LABS: Basophils % 0.3 % (0.0-0.8); Hemoglobin 12.6 GM/DL (14.0-18.0); Immature Granulocytes % 7.1 %; Immature Granulocytes Absolute 0.41 #; Lymphocytes # 0.3 10*3/uL (1.4-4.0); Lymphocytes % 5.2 % (21.2-54.2); Mean Corpuscular HGB Conc 30.1 GM/DL (32-36); Mean Corpuscular Volume 105.5 FL (87-102); Monocytes # 0.3 10*3/uL (0.11-0.8); Monocytes % 4.8 % (1.7-12.7); NRBC # 0.24 10*3/uL; Neutrophils % 82.6 % (38.7-73.9); Platelet Count 131 T/CUMM (130-400); Red Blood Count 3.97 MC/CUMM (3.8-5.5); White Blood Count 5.8 T/CUMM (4-12)
[2022-05-01 23:47] LABS: Hematocrit 41.9 VOL% (42.0-52.0)
[2022-05-02] MEDS: INSULIN LISPRO 100 UNIT/ML SUBCUT SCH ×6 (00:16→23:27)
[2022-05-02] MEDS: DEXTROSE 10% 250 ML BAG IV PRN ×2 (00:25→20:15)
[2022-05-02] MEDS: DULoxetine 30 MG CAPSULE PO SCH ×3 (00:28→20:17)
[2022-05-02 00:53] LABS: Band Neutrophils 8 % (0-10); Lymphocytes 9 % (20-55); Metamyelocytes 3 %; Nucleated Red Blood Cells 2 /100 WBC (0-5); Platelet Estimate Adequate; Total Cells Counted 100
[2022-05-02] MEDS: MIDAZOLAM 100 MG in SODIUM CHLORIDE 0.9% 80 ML IV PRN ×4 (00:53→21:44)
[2022-05-02] MEDS: methylPREDNISolone SOD SUC 40 MG/1 ML VIAL IV SCH ×4 (01:00→23:15)
[2022-05-02] MEDS ORDERED: NOREPINEPHRINE 4 MG/4 ML VIAL IV ONE (01:12)
[2022-05-02] MEDS: ALBUTEROL/IPRATROPIUM 3 ML NEB RESP TX SCH ×4 (01:30→19:40)
[2022-05-02] MEDS ORDERED: SODIUM BICARBONATE 50 MEQ/50 ML VIAL IV ONE ×2 (02:25→04:29)
[2022-05-02] MEDS: NOREPINEPHRINE 8 MG in SODIUM CHLORIDE 0.9% 242 ML IV PRN ×2 (02:52→07:04)
[2022-05-02 04:22] LABS: ABG Base Excess -9.2 MMOL/L (-2.5-2.5); ABG HCO3 17.1 MMOL/L (20-26); ABG Oxygen Saturation 93.4 % (95-100); ABG PCO2 47.6 MM HG (35-48); ABG PO2 86.6 MM HG (80-95); ABG TCO2 17.2 MMOL/L (23-27)
[2022-05-02 04:32] LABS: Basophils % 0.2 % (0.0-0.8); Hematocrit 43.1 VOL% (42.0-52.0); Hemoglobin 13.1 GM/DL (14.0-18.0); Immature Granulocytes % 3.4 %; Immature Granulocytes Absolute 0.14 #; Lymphocytes # 0.4 10*3/uL (1.4-4.0); Lymphocytes % 8.5 % (21.2-54.2); Mean Corpuscular HGB Conc 30.4 GM/DL (32-36); Mean Corpuscular Volume 104.4 FL (87-102); Mean Platelet Volume 12.3 FL (9.6-12.0); Monocytes # 0.2 10*3/uL (0.11-0.8); Monocytes % 5.1 % (1.7-12.7); NRBC # 0.23 10*3/uL; Neutrophils % 82.8 % (38.7-73.9); Platelet Count 127 T/CUMM (130-400); Red Blood Count 4.13 MC/CUMM (3.8-5.5); Red Cell Distribution Width 17.2 % (9.3-17.3); White Blood Count 4.1 T/CUMM (4-12)
[2022-05-02 04:52] LABS: Albumin 2.4 G/DL (3.4-5.0); Bilirubin,Total 1.1 MG/DL (0.20-1.00); Calcium 8.6 MG/DL (8.5-10.1); Osmolality,Calculated 280.5 MOS/KG (273-304); Potassium 5.1 MMOL/L (3.5-5.1)
[2022-05-02 04:56] LABS: Band Neutrophils 11 % (0-10); Eosinophils 1 % (0-10); Lymphocytes 3 % (20-55); Nucleated Red Blood Cells 6 /100 WBC (0-5); Total Cells Counted 100
[2022-05-02 04:57] LABS: Burr Cells Slight; Macrocytosis Slight
[2022-05-02] MEDS: HEPARIN 5,000 UNIT/1 ML VIAL SUBCUT SCH ×2 (05:55→17:51)
[2022-05-02] MEDS ORDERED: PANTOPRAZOLE 40 MG TABLET PO SCH (09:00)
[2022-05-02] MEDS ORDERED: busPIRone 10 MG TABLET PO SCH (09:00)
[2022-05-02] MEDS ORDERED: MONTELUKAST 10 MG TABLET PO SCH (09:00)
[2022-05-02] MEDS ORDERED: MULTIVITAMIN (BEROCCA) TABLET PO SCH (09:00)
[2022-05-02] MEDS ORDERED: ASPIRIN EC 81 MG TABLET PO SCH (09:00)
[2022-05-02] MEDS: fentaNYL INJ 1,250 MCG in SODIUM CHLORIDE 0.9% 225 ML IV PRN ×2 (09:17→17:00)
[2022-05-02 09:34] LABS: ABG Base Excess -9.1 MMOL/L (-2.5-2.5); ABG PCO2 49.9 MM HG (35-48); ABG PH 7.201 (7.35-7.45); ABG TCO2 17.6 MMOL/L (23-27)
[2022-05-02] MEDS ORDERED: CISATRACURIUM 10 MG/5 ML VIAL IV ONE (09:48)
[2022-05-02] MEDS ORDERED: FUROSEMIDE 100 MG/10 ML VIAL IV ONE (09:48)
[2022-05-02] MEDS: ROCURONIUM 500 MG in SODIUM CHLORIDE 0.9% 500 ML IV PRN ×2 (10:15→16:11)
[2022-05-02] MEDS: NOREPINEPHRINE 16 MG in SODIUM CHLORIDE 0.9% 234 ML IV PRN ×4 (10:15→23:16)
[2022-05-02] MEDS ORDERED: ZINC OXIDE PASTE 113 GM TUBE TOP PRN (12:17)
[2022-05-02] MEDS ORDERED: SKIN HEALING OINT (AQUAPHOR) 50 GM TUBE TOP SCH (12:30)
[2022-05-02] MEDS: NON-FORMULARY MEDICATION (Ferric Citrate [Auryxia] 210 mg iron Tablet) PO SCH (17:17)
[2022-05-02] MEDS: cefTRIAXone 1,000 MG in SODIUM CHLORIDE 0.9% 100 ML IV SCH (17:51)
[2022-05-02] MEDS: AZITHROMYCIN INJ 500 MG in SODIUM CHLORIDE 0.9% 250 ML IV SCH (17:52)
[2022-05-02] MEDS ORDERED: fentaNYL INJ 2,500 MCG in SODIUM CHLORIDE 0.9% 75 ML IV PRN (19:00)
[2022-05-02] MEDS ORDERED: MEROPENEM 500 MG in SODIUM CHLORIDE 0.9% 100 ML IV SCH (21:00)
[2022-05-02] MEDS ORDERED: VANCOMYCIN INJ 2,500 MG in SODIUM CHLORIDE 0.9% 500 ML IV ONE (21:00)
[2022-05-02] MEDS ORDERED: ROCURONIUM 1,000 MG in SODIUM CHLORIDE 0.9% 175 ML IV PRN (22:00)
[2022-05-02] MEDS ORDERED: DEXTROSE 10% 500 ML IV SCH (23:45)
[2022-05-02] MEDS ORDERED: DEXTROSE 10% 1,000 ML IV SCH (23:45)
[2022-05-03] MEDS: ALBUTEROL/IPRATROPIUM 3 ML NEB RESP TX SCH ×2 (01:02→01:08)
[2022-05-03] MEDS: NOREPINEPHRINE 16 MG in SODIUM CHLORIDE 0.9% 234 ML IV PRN ×2 (02:39→05:17)
[2022-05-03] MEDS: HEPARIN 5,000 UNIT/1 ML VIAL SUBCUT SCH (03:02)
[2022-05-03 03:29] LABS: ABG Base Excess -9.9 MMOL/L (-2.5-2.5); ABG HCO3 16.3 MMOL/L (20-26); ABG Oxygen Saturation 76.1 % (95-100); ABG PCO2 57.1 MM HG (35-48); ABG PO2 54.1 MM HG (80-95); ABG TCO2 18.3 MMOL/L (23-27)
[2022-05-03 03:31] LABS: ABG PH 7.154 (7.35-7.45)
[2022-05-03] MEDS ORDERED: SODIUM BICARBONATE 50 MEQ/50 ML VIAL IV ONE (03:39)
[2022-05-03] MEDS ORDERED: PHENYLEPHRINE INJ 160 MG in SODIUM CHLORIDE 0.9% 234 ML IV PRN (03:39)
[2022-05-03 03:45] LABS: Bilirubin,Total 1.6 MG/DL (0.20-1.00); Calcium 8.5 MG/DL (8.5-10.1); Osmolality,Calculated 279.2 MOS/KG (273-304); Total Protein 6.3 G/DL (6.4-8.2)
[2022-05-03 03:51] LABS: Basophils % 0.8 % (0.0-0.8); Hematocrit 45.7 VOL% (42.0-52.0); Hemoglobin 13.9 GM/DL (14.0-18.0); Immature Granulocytes % 1.4 %; Immature Granulocytes Absolute 0.07 #; Lymphocytes # 0.3 10*3/uL (1.4-4.0); Lymphocytes % 5.7 % (21.2-54.2); Mean Corpuscular HGB Conc 30.4 GM/DL (32-36); Mean Corpuscular Volume 106.3 FL (87-102); Monocytes # 0.4 10*3/uL (0.11-0.8); Monocytes % 7.8 % (1.7-12.7); NRBC # 0.97 10*3/uL; Neutrophils % 84.3 % (38.7-73.9); Platelet Count 100 T/CUMM (130-400); Red Cell Distribution Width 17.8 % (9.3-17.3); White Blood Count 5.1 T/CUMM (4-12)
[2022-05-03 03:54] LABS: Vitamin B12 > 2000 PG/ML (211-911)
[2022-05-03] MEDS ORDERED: INSULIN REGULAR 10 UNIT, CALCIUM GLUCONATE 1,000 MG in DEXTROSE 10% 250 ML IV ONE (03:57)
[2022-05-03 04:02] LABS: Band Neutrophils 16 % (0-10); Lymphocytes 5 % (20-55); Macrocytosis Slight; Nucleated Red Blood Cells 25 /100 WBC (0-5); Platelet Estimate Decreased; Total Cells Counted 100
[2022-05-03] MEDS: INSULIN LISPRO 100 UNIT/ML SUBCUT SCH (04:03)
[2022-05-03] MEDS ORDERED: VANCOMYCIN INJ 1,250 MG in SODIUM CHLORIDE 0.9% 250 ML IV PRN (17:00)
== END 2022-05-03 06:08 | disposition expired | DRG 208 ==
LOC: N.ED 12:47 → SUATTDRO 15:03 → N.EDINP 15:03 → N.CC 18:30
PROVIDERS: ADMIT Internal Medicine; ATTEND Family Medicine